=== PATIENT | female | born 1965 | race African-American/Black ===

== ENCOUNTER 2022-09-14 07:05 | Day surgery (SDC) | payer BC ==
[2022-09-10 14:13] VITALS: BMI 29.2
[~2022-09-14 07:05] MED LIST: EPINEPHrine 0.3 MG in Ophthalmic Irrigation Solution 500 ML IRR SCH
[2022-09-14] MEDS ORDERED: Phenylephrine 2.5% Ophth Soln 5 ML BOT ONE (07:17)
[2022-09-14] MEDS ORDERED: Cyclopentolate 1% Opth Drop 2 ML BOT ONE (07:17)
[2022-09-14] MEDS ORDERED: PROPOFOL 20 ML ONE (08:28)
[2022-09-14] MEDS ORDERED: Midazolam HCl 2 mg/2 ml Vial ONE (08:28)
[2022-09-14] MEDS ORDERED: Fentanyl 100 MCG/2 ML VIAL ONE (08:28)
[2022-09-14] MEDS ORDERED: Lidocaine 2% PF 5 ML VIAL ONE (08:36)
[2022-09-14] MEDS ORDERED: Bupivacaine 0.75% 10 ML VIAL ONE (08:36)
[2022-09-14] MEDS ORDERED: Triamcinolone 40 MG/ML VIAL ONE (08:36)
[2022-09-14] MEDS ORDERED: Maxitrol 0.1% Opth Oint 3.5 GM TUBE ONE (08:36)
== END 2022-09-14 10:10 | disposition home or self-care (01) ==
LOC: SDC 07:05
PROVIDERS: ATTEND Ophthalmology Retina Specialist
PROC: 08QE3ZZ Repair Right Retina, Percutaneous Approach (ICD-10-PCS; principal; 2022-09-14)
DX: H33.021 Retinal detachment with multiple breaks, right eye (principal); I11.0 Hypertensive heart disease with heart failure; I50.9 Heart failure, unspecified; E78.5 Hyperlipidemia, unspecified; Z85.3 Personal history of malignant neoplasm of breast; Z79.82 Long term (current) use of aspirin; Z79.84 Long term (current) use of oral hypoglycemic drugs; Z79.899 Other long term (current) drug therapy; Z88.0 Allergy status to penicillin; Z98.41 Cataract extraction status, right eye; Z98.42 Cataract extraction status, left eye; Z96.1 Presence of intraocular lens; Z95.810 Presence of automatic (implantable) cardiac defibrillator
CPT/HCPCS: 67025; J0171; J2001; J2250; J2704; J3010; J3301; J3490